=== PATIENT | female | born 1945 | race Caucasian/White ===

== ENCOUNTER 2017-04-25 14:24 | Emergency (ER) | payer MEDICARE ==
[2017-04-25] MEDS ORDERED: ASPIRIN 81MG TAB.CHEW ONE (14:40)
[2017-04-25 15:07] LABS: BASOPHILS % (AUTO) 0.6 % (0.0-5.0); HEMATOCRIT 38.6 % (36-48); MEAN CORPUSCULAR HGB CONC 33.9 g/dL (32.0-36.0); MEAN CORPUSCULAR VOLUME 94.2 fL (79-99); NEUTROPHILS % (AUTO) 78.4 % (40.0-77.0); PLATELET COUNT (AUTO) 168 K/uL (130-400); RED CELL DISTRIBUTION WIDTH 14.2 % (11.0-15.5); WHITE BLOOD COUNT (AUTO) 4.7 K/uL (4.8-10.8)
[2017-04-25 15:15] LABS: INR 1.07 (0.85-1.15); PARTIAL THROMBOPLASTIN TIME 30.4 SEC (26.3-35.5); PROTHROMBIN TIME 11.2 SEC (9.6-11.6)
[2017-04-25 15:22] LABS: CREATININE 0.9 mg/dL (0.5-1.5); POTASSIUM 3.8 mmol/L (3.5-5.1)
[2017-04-25 15:27] LABS: ALBUMIN 3.6 g/dL (3.5-5.0); BILIRUBIN,TOTAL 0.5 mg/dL (0.2-1.0); TOTAL PROTEIN, SERUM 6.7 g/dL (6.0-8.3)
[2017-04-25] MEDS ORDERED: MAGNESIUM 2GM PREMIX 50ML 50 ML IV ONE (15:48)
[2017-06-01] MEDS ORDERED: RIVA20TA PO (09:10)
[2017-06-01] MEDS ORDERED: OLME40TA18 PO (09:10)
[2017-06-01] MEDS ORDERED: PROP225C8 PO (09:10)
[2017-06-01] MEDS ORDERED: TOLT4CAP PO (09:10)
[2017-06-01] MEDS ORDERED: LORA-705 PO (09:10)
[2017-06-01] MEDS ORDERED: [UNRECOGNIZED DRUG - CODE] PO (09:10)
[2017-06-01] MEDS ORDERED: RANI300T7 PO (09:10)
[2017-06-01] MEDS ORDERED: TIMO1DRO2 OP (09:10)
== END 2017-04-25 19:06 | disposition home or self-care (01) ==
LOC: EDH 14:24
DX: R07.89 Other chest pain (principal); I48.91 Unspecified atrial fibrillation; I25.10 Atherosclerotic heart disease of native coronary artery without angina pectoris; I10 Essential (primary) hypertension; Z88.0 Allergy status to penicillin; Z87.891 Personal history of nicotine dependence
CPT/HCPCS: 36415; 71045; 80053; 82550; 83735; 84484 ×2; 85025; 85610; 85730; 93005; 96365; 96366; 99285; J3475

== ENCOUNTER 2017-06-02 08:45 | Day surgery (SDC) | payer MEDICARE ==
[~2017-06-02] VITALS: Ht 165.1 cm; Wt 72.2 kg
[~2017-06-02 08:45] MED LIST: LORA-705 PO; OLME40TA18 PO; PROP225C8 PO; RANI300T7 PO; RIVA20TA PO; SODIUM CHLORIDE 0.9% 1000ML 1,000 ML IV ONE; TIMO1DRO2 OP; TOLT4CAP PO; [UNRECOGNIZED DRUG - CODE] PO
[2017-06-02 09:42] LABS: ALBUMIN 3.7 g/dL (3.5-5.0); BILIRUBIN,DIRECT 0.2 mg/dL (0.0-0.3); BILIRUBIN,TOTAL 0.9 mg/dL (0.2-1.0); TOTAL PROTEIN, SERUM 7.3 g/dL (6.0-8.3)
[2017-06-02 10:01] VITALS: BP 188/74
[2017-06-02 12:08] VITALS: BP 119/45
== END 2017-06-02 11:45 | disposition home or self-care (01) ==
LOC: ENDO 08:45 → DAH 08:45 → ENDO 11:45
PROVIDERS: ATTEND Internal Medicine Gastroenterology
DX: K63.5 Polyp of colon (principal); Z86.010 Personal history of colon polyps; K21.9 Gastro-esophageal reflux disease without esophagitis; I10 Essential (primary) hypertension; I48.91 Unspecified atrial fibrillation; M19.90 Unspecified osteoarthritis, unspecified site; H40.9 Unspecified glaucoma; Z90.49 Acquired absence of other specified parts of digestive tract; Z90.710 Acquired absence of both cervix and uterus; Z98.890 Other specified postprocedural states; Z79.899 Other long term (current) drug therapy
CPT/HCPCS: 36415; 43237; 45380; 80076; 83690; 88305; 93005; A4606; J7030; 43231

== ENCOUNTER 2018-03-13 13:29 | Inpatient (IN) | payer MEDICARE ==
[~2018-03-13] VITALS: Ht 162.6 cm; Wt 68.0 kg
[~2018-03-13 13:29] MED LIST changes: -SODIUM CHLORIDE 0.9% 1000ML 1,000 ML IV ONE
[2018-03-13] MEDS ORDERED: SODIUM CHLORIDE 0.9% 10 ML VIAL IVP PRN (14:30)
[2018-03-13 14:40] LABS: BASOPHILS % (AUTO) 0.8 % (0.0-5.0); EOSINOPHILS % (AUTO) 3.4 % (0.0-8.0); HEMATOCRIT 40.9 % (36-48); LYMPHOCYTES % (AUTO) 24.9 % (21.0-51.0); MEAN CORPUSCULAR HEMOGLOBIN 31.7 pg (27.0-33.0); MEAN CORPUSCULAR HGB CONC 33.2 g/dL (32.0-36.0); MEAN CORPUSCULAR VOLUME 95.5 fL (79-99); MONOCYTES % (AUTO) 7.3 % (3.0-13.0); NEUTROPHILS % (AUTO) 63.6 % (40.0-77.0); NUCLEATED RED BLOOD CELLS 0.1 % (0.0-0.19); PLATELET COUNT (AUTO) 199 K/uL (130-400); RED BLOOD CELL COUNT(AUTO) 4.29 MIL/uL (4.00-5.50); RED CELL DISTRIBUTION WIDTH 13.5 % (11.0-15.5); WHITE BLOOD COUNT (AUTO) 5.4 K/uL (4.8-10.8)
[2018-03-13 14:52] LABS: INR 1.01 (0.85-1.15); PARTIAL THROMBOPLASTIN TIME 29.4 SEC (26.3-35.5); PROTHROMBIN TIME 10.6 SEC (9.6-11.6)
[2018-03-13 14:57] LABS: CREATININE 0.8 mg/dL (0.5-1.5); POTASSIUM 4.3 mmol/L (3.5-5.1)
[2018-03-13 15:10] LABS: ALBUMIN 3.8 g/dL (3.5-5.0); BILIRUBIN,TOTAL 0.6 mg/dL (0.2-1.0); THYROID STIMULATING HORMONE 1.69 uIU/mL (0.36-3.74); TOTAL PROTEIN, SERUM 7.2 g/dL (6.0-8.3)
[2018-03-13 15:28] LABS: T4 (THYROXINE) 8.1 mcg/dL (4.7-13.3)
[2018-03-13 17:45] VITALS: BP 162/57
[2018-03-13] MEDS ORDERED: FURO10DI11 IJ (17:55)
[2018-03-13] MEDS ORDERED: TETANUS/DIPHTHERIA TOXOID [ADULT] 0.5 ML VIAL IM SCH (19:15)
[2018-03-13 19:55] VITALS: BP 141/60
[2018-03-13] MEDS ORDERED: FURO20TA4 PO (19:55)
[2018-03-13] MEDS ORDERED: MAGNESIUM CITRATE 296 ML SOLUTION PO ONE (20:15)
[2018-03-13] MEDS ORDERED: LACTULOSE 20 GM/30 ML UDCUP PO SCH (20:15)
[2018-03-13] MEDS: PROPAFENONE HCL 150 MG TABLET PO SCH (20:49)
[2018-03-13 23:23] VITALS: BP 155/75
[2018-03-14] VITALS (11 sets, daily range): BP systolic 121–146; BP diastolic 41–73
[2018-03-14 04:07] LABS: CHOLESTEROL 157 mg/dL (<200); HDL CHOLESTEROL 91 mg/dL (35-85); LDL DIRECT 51 mg/dL (0-99); TRIGLYCERIDES 87 mg/dL (30-200)
[2018-03-14] MEDS ORDERED: VANCOMYCIN 1GM+NS 250ML 250 ML IV SCH (06:00)
[2018-03-14] MEDS ORDERED: ACETAMINOPHEN 325 MG TAB ONE (06:13)
[2018-03-14] MEDS ORDERED: ACETAMINOPHEN 325 MG TAB PO PRN ×2 (08:45→13:30)
[2018-03-14] MEDS: OXYBUTYNIN 5 MG TAB.SR.24H PO SCH (09:00)
[2018-03-14] MEDS: DILTIAZEM HCL 120 MG CAP.SR.24H PO SCH ×2 (09:00→17:28)
[2018-03-14] MEDS: FUROSEMIDE 20 MG TABLET PO SCH ×2 (09:00→17:25)
[2018-03-14] MEDS: PROPAFENONE HCL 150 MG TABLET PO SCH ×2 (09:00→20:11)
[2018-03-14] MEDS: LORATADINE 10 MG TABLET PO SCH ×2 (09:00→17:19)
[2018-03-14] MEDS: TIMOLOL MALEATE 0.5% 5 ML BOTTLE OP SCH (09:00)
[2018-03-14] MEDS: COMBIGAN OS SCH (09:00)
[2018-03-14] MEDS: RANITIDINE HCL 15 MG/1 ML PO SCH ×2 (09:00)
[2018-03-14] MEDS: LOSARTAN 100 MG TABLET PO SCH (09:00)
[2018-03-14] MEDS ORDERED: MEPERIDINE-PF 25 MG/ML SYG ONE ×5 (09:12→13:03)
[2018-03-14] MEDS ORDERED: MIDAZOLAM HCL 1 MG/ML 2ML VIAL ONE ×5 (09:12→13:03)
[2018-03-14] MEDS ORDERED: LIDOCAINE HCL 2% 20ML ONE (09:12)
[2018-03-14] MEDS ORDERED: BUPIVACAINE/PF 0.25% 30ML VIAL IJ ONE (11:36)
[2018-03-14] MEDS ORDERED: VANCOMYCIN 1GM+NS 250ML 250 ML IV ONE ×2 (11:36→11:37)
[2018-03-14] MEDS ORDERED: IOHEXOL-350 50ML VIAL IV ONE (11:36)
[2018-03-14] MEDS ORDERED: LIDOCAINE HCL 1% MDV 50ML VIAL ONE (11:36)
[2018-03-14] MEDS ORDERED: ACETAMINOPHEN-CODEINE 300/30MG TAB PO PRN ×2 (13:30)
[2018-03-15 03:51] LABS: HEMATOCRIT 38.4 % (36-48); MEAN CORPUSCULAR HEMOGLOBIN 32.6 pg (27.0-33.0); MEAN CORPUSCULAR HGB CONC 34.1 g/dL (32.0-36.0); MEAN CORPUSCULAR VOLUME 95.4 fL (79-99); PLATELET COUNT (AUTO) 179 K/uL (130-400); RED BLOOD CELL COUNT(AUTO) 4.02 MIL/uL (4.00-5.50); RED CELL DISTRIBUTION WIDTH 13.2 % (11.0-15.5); WHITE BLOOD COUNT (AUTO) 6.7 K/uL (4.8-10.8)
[2018-03-15 03:53] VITALS: BP 146/67
[2018-03-15 04:03] LABS: CREATININE 0.8 mg/dL (0.5-1.5); MAGNESIUM 1.9 mg/dL (1.80-2.40); PHOSPHORUS 3.1 mg/dL (2.5-4.9); POTASSIUM 4.1 mmol/L (3.5-5.1)
[2018-03-15 07:39] VITALS: BP 148/71
[2018-03-15] MEDS: LORATADINE 10 MG TABLET PO SCH (09:00)
[2018-03-15] MEDS: TIMOLOL MALEATE 0.5% 5 ML BOTTLE OP SCH (09:00)
[2018-03-15] MEDS: RANITIDINE HCL 15 MG/1 ML PO SCH ×2 (09:00)
[2018-03-15] MEDS: COMBIGAN OS SCH (09:00)
[2018-03-15] MEDS ORDERED: DILT240C93 PO (09:35)
[2018-03-15] MEDS ORDERED: FURO20TA4 PO (09:35)
[2018-03-15] MEDS: DILTIAZEM HCL 120 MG CAP.SR.24H PO SCH (09:53)
[2018-03-15] MEDS: FUROSEMIDE 20 MG TABLET PO SCH (09:53)
[2018-03-15] MEDS: LOSARTAN 100 MG TABLET PO SCH (09:54)
[2018-03-15] MEDS: OXYBUTYNIN 5 MG TAB.SR.24H PO SCH (09:54)
[2018-03-15] MEDS: PROPAFENONE HCL 150 MG TABLET PO SCH (09:55)
[2018-03-15 11:50] VITALS: BP 141/60
== END 2018-03-15 15:03 | disposition home or self-care (01) | DRG 243 ==
LOC: EDH 13:29 → OBSVTOIN 13:30 → EDHIP 13:30 → 2DH 17:27
PROVIDERS: ADMIT Internal Medicine; ATTEND Internal Medicine
PROC: 3E0234Z Introduction of Serum, Toxoid and Vaccine into Muscle, Percutaneous Approach (ICD-10-PCS; 2018-03-13)
PROC: 0JH606Z Insertion of Pacemaker, Dual Chamber into Chest Subcutaneous Tissue and Fascia, Open Approach (ICD-10-PCS; principal; 2018-03-14)
PROC: 02HK3JZ Insertion of Pacemaker Lead into Right Ventricle, Percutaneous Approach (ICD-10-PCS; 2018-03-14)
PROC: 02H63JZ Insertion of Pacemaker Lead into Right Atrium, Percutaneous Approach (ICD-10-PCS; 2018-03-14)
PROC: 4A023FZ Measurement of Cardiac Rhythm, Percutaneous Approach (ICD-10-PCS; 2018-03-14)
PROC: 4A0234Z Measurement of Cardiac Electrical Activity, Percutaneous Approach (ICD-10-PCS; 2018-03-14)
DX: I49.5 Sick sinus syndrome (principal); I48.92 Unspecified atrial flutter; I10 Essential (primary) hypertension; I25.10 Atherosclerotic heart disease of native coronary artery without angina pectoris; I48.0 Paroxysmal atrial fibrillation; Z79.01 Long term (current) use of anticoagulants; Z79.899 Other long term (current) drug therapy; Z90.710 Acquired absence of both cervix and uterus; Z88.0 Allergy status to penicillin; Z82.3 Family history of stroke; Z83.3 Family history of diabetes mellitus; Z80.9 Family history of malignant neoplasm, unspecified; Z82.0 Family history of epilepsy and other diseases of the nervous system; Z23 Encounter for immunization
CPT/HCPCS: 33208; 36415; 70450; 70486; 71045; 80048; 80053; 80061; 83735; 84100; 84436; 84443; 84484; 85025; 85027; 85610; 85730; 90714; 93308; 93620; 93621; 99156; 99157; C1730; C1785; C1894; G0378; J1644; J2175; J2250; J3370; J3490; Q9967

== ENCOUNTER 2020-04-23 06:35 | Day surgery (SDC) | payer MEDICARE ==
[~2020-04-23] VITALS: Ht 167.6 cm; Wt 71.1 kg
[~2020-04-23 06:35] MED LIST changes: +DILT240C93 PO; +FURO20TA4 PO; +LORA-699 PO; -LORA-705 PO
[2020-04-23 07:00] VITALS: BP 190/59
[2020-04-23] MEDS ORDERED: SODIUM CHLORIDE 0.9% 1000ML 1,000 ML IV ONE (07:13)
[2020-04-23 07:18] LABS: BASOPHILS % (AUTO) 0.4 % (0.0-5.0); EOSINOPHILS % (AUTO) 4.6 % (0.0-8.0); HEMATOCRIT 38.5 % (36-48); LYMPHOCYTES % (AUTO) 30.1 % (21.0-51.0); MEAN CORPUSCULAR HEMOGLOBIN 31.9 pg (27.0-33.0); MEAN CORPUSCULAR VOLUME 96.7 fL (79-99); MONOCYTES % (AUTO) 11.3 % (3.0-13.0); NEUTROPHILS % (AUTO) 53.4 % (40.0-77.0); PLATELET COUNT (AUTO) 221 K/uL (130-400); RED BLOOD CELL COUNT(AUTO) 3.98 MIL/uL (4.00-5.50); RED CELL DISTRIBUTION WIDTH 12.6 % (11.0-15.5)
[2020-04-23 07:27] LABS: POTASSIUM 4.4 mmol/L (3.5-5.1)
[2020-04-23] MEDS ORDERED: FURO20TA4 PO (08:16)
[2020-04-23 08:30] VITALS: BP 168/55
[2020-04-23 09:18] LABS: CHOLESTEROL 211 mg/dL (<200); HDL CHOLESTEROL 129 mg/dL (35-85); LDL DIRECT 66 mg/dL (0-99); TRIGLYCERIDES 69 mg/dL (30-200)
== END 2020-04-23 09:00 | disposition home or self-care (01) ==
LOC: DAH 06:35
PROVIDERS: ATTEND Internal Medicine Cardiovascular Disease
DX: I48.0 Paroxysmal atrial fibrillation (principal); I10 Essential (primary) hypertension; Z88.0 Allergy status to penicillin; Z53.8 Procedure and treatment not carried out for other reasons
CPT/HCPCS: 36415; 80048; 80061; 85025; 93005; A4215; A4216; A4221; A4222; A4223 ×3; A4606; A4663; J7030

== ENCOUNTER → 2020-04-28 | Outpatient (CLI) | payer MEDICARE ==
[~2020-04-28] VITALS: Ht 162.6 cm; Wt 70.8 kg
[~2020-04-28] MED LIST changes: -LORA-699 PO; -RANI300T7 PO; +REGADENOSON 0.4 MG/5 ML PF SYG IVP SCH
== END | disposition home or self-care (01) ==
LOC: SHCH 08:43
PROVIDERS: ATTEND Internal Medicine Cardiovascular Disease
DX: I25.10 Atherosclerotic heart disease of native coronary artery without angina pectoris (principal)
CPT/HCPCS: 78452; 93017; 96374; A9500 ×2; J2785

== ENCOUNTER → 2020-05-27 | Outpatient (CLI) | payer MEDICARE ==
[~2020-05-27] MED LIST changes: -REGADENOSON 0.4 MG/5 ML PF SYG IVP SCH
== END | disposition home or self-care (01) ==
LOC: RAH 07:55
PROVIDERS: ATTEND Internal Medicine
DX: R10.2 Pelvic and perineal pain (principal)
CPT/HCPCS: 72192